=== PATIENT | male | born 1965 | race Two or more races ===

== ENCOUNTER 2024-09-30 17:08 | Inpatient (IN) | payer MEDICAID ==
[~2024-09-30] VITALS: Ht 177.8 cm; Wt 58.2 kg
[~2024-09-30 17:08] MED LIST: VANCOMYCIN 750 MG in IV D5W 250 ML IV SCH
[2024-09-30] MEDS ORDERED: ALBUTEROL FS 2.5 MG/3 ML VIAL.NEB ONE (17:21)
[2024-09-30] MEDS: IPRATROPIUM NEB FS 0.5 MG/2.5 ML AMPUL.NEB NEB ONE (17:21)
[2024-09-30] MEDS ORDERED: IPRATROPIUM NEB FS 0.5 MG/2.5 ML AMPUL.NEB ONE (17:21)
[2024-09-30] MEDS: ALBUTEROL FS 2.5 MG/3 ML VIAL.NEB CONTNEB ONE (17:21)
[2024-09-30 17:47] LABS: ABG BASE EXCESS 2.2 mmol/L (-2.0-3.0); ABG OXYGEN SATURATION 99.4 % (94.0-98.0); ABG PCO2 35.7 mmHg (35.0-48.0); ABG PH 7.474 (7.350-7.450); ABG PO2 258.8 mmHg (83.0-108.0); COHb 0.2 % (0.5-1.5); MetHb 0.3 % (0.0-1.5); O2Hb 98.9 % (94.0-97.0); PEEP,BG 5 cm H2O; SITE, ABG LEFT RADIAL; VT, ABG 500 mL
[2024-09-30] MEDS ORDERED: QUET25TA GT (18:28)
[2024-09-30] MEDS ORDERED: LORA10TA7 GT (18:28)
[2024-09-30] MEDS ORDERED: DILT30TA2 GT (18:28)
[2024-09-30] MEDS ORDERED: OXYCODONE HCL GT (18:28)
[2024-09-30] MEDS ORDERED: ZOLP5TAB8 GT (18:28)
[2024-09-30] MEDS ORDERED: HC A10FO RC (18:28)
[2024-09-30] MEDS ORDERED: SIME80TA15 GT (18:28)
[2024-09-30] MEDS ORDERED: POLY15DR17 EACHEYE (18:28)
[2024-09-30] MEDS ORDERED: IPRA3AMP23 IH (18:28)
[2024-09-30] MEDS ORDERED: HYDR-4075 GT (18:28)
[2024-09-30] MEDS ORDERED: DIAZ5TAB4 GT (18:28)
[2024-09-30 19:34] LABS: BASOPHILS # (AUTO) 0.1 K/uL (0.0-0.2); EOSINOPHILS # (AUTO) 0.2 K/uL (0.0-0.7); EOSINOPHILS % (AUTO) 1.5 % (0.0-6.0); HEMATOCRIT 36 % (39-51); HEMOGLOBIN 11.5 g/dL (13.5-17.5); LYMPHOCYTES # (AUTO) 0.9 K/uL (0.8-4.8); LYMPHOCYTES % (AUTO) 6.3 % (20.0-44.0); MEAN CORPUSCULAR HEMOGLOBIN 30 PG (26.0-33.0); MEAN CORPUSCULAR HGB CONC 32 g/dl (31.0-36.0); MEAN CORPUSCULAR VOLUME 94 fL (80-96); MONOCYTES # (AUTO) 0.5 K/uL (0.1-1.30); MONOCYTES % (AUTO) 3.4 % (2.0-12.0); NEUTROPHILS # (AUTO) 12.3 K/uL (1.8-8.9); NEUTROPHILS % (AUTO) 87.8 % (43.0-81.0); PLATELET COUNT (AUTO) 606 K/uL (150-450); RED BLOOD CELL COUNT(AUTO) 3.84 MIL/uL (4.5-6.0); RED CELL DISTRIBUTION WIDTH 14.9 % (11.5-15.0)
[2024-09-30 19:51] LABS: CREATININE 0.7 mg/dL (0.6-1.3)
[2024-09-30] MEDS ORDERED: ONDANSETRON HCL/PF 4 MG/2 ML VIAL IVP PRN (21:00)
[2024-09-30] MEDS ORDERED: IPRATROPIUM NEB FS 0.5 MG/2.5 ML AMPUL.NEB NEB PRN ×2 (21:00)
[2024-09-30] MEDS ORDERED: DIAZEPAM 5 MG TABLET GT PRN (21:30)
[2024-09-30] MEDS: IPRATROPIUM NEB FS 0.5 MG/2.5 ML AMPUL.NEB NEB SCH (21:30)
[2024-09-30] MEDS ORDERED: DILTIAZEM HCL 30 MG TABLET GT PRN (21:30)
[2024-09-30] MEDS ORDERED: SIMETHICONE 80 MG TAB.CHEW GT PRN (21:30)
[2024-09-30] MEDS ORDERED: hydrALAZINE HCL 10 MG TABLET GT PRN (21:30)
[2024-09-30] MEDS: IV NS 0.9% 1,000 ML IV SCH (22:56)
[2024-09-30] MEDS ORDERED: VANCOMYCIN 1 GM /D5W 250 ML PB IV ONE (23:06)
[2024-09-30] MEDS ORDERED: MEROPENEM 1 G VIAL IV ONE (23:07)
[2024-09-30] MEDS: MEROPENEM 1 G in IV NS 0.9% 100 ML IV SCH (23:41)
[2024-09-30] MEDS: VANCOMYCIN HCL 1.25 GM in IV D5W 250 ML IV ONE (23:42)
[2024-09-30] MEDS ORDERED: oxyCODONE HCL SOLN 5 MG/5 ML UDC GT PRN (23:45)
[2024-09-30] MEDS: QUETIAPINE FUMARATE 25 MG TABLET GT SCH (23:46)
[2024-09-30] MEDS: ENOXAPARIN SODIUM 40 MG/0.4 ML DISP.SYRIN SQ SCH (23:47)
[2024-09-30] MEDS: ALBUTEROL FS 2.5 MG/3 ML VIAL.NEB NEB SCH (23:52)
[2024-10-01] VITALS: BP 119/61; TEMP 99.5; O2SAT 95
[2024-10-01] MEDS: POLYVINYL ALCOHOL 15 ML BOTTLE EACHEYE SCH (01:00)
[2024-10-01] MEDS: ACETAMINOPHEN 650 MG/20.3 ML UDC GT ONE (01:18)
[2024-10-01] MEDS: KETOROLAC TROMETHAMINE INJ 30 MG/ML VIAL IM/IV ONE (01:19)
[2024-10-01 01:54] LABS: ALBUMIN 1.9 g/dL (3.4-5.0); BILIRUBIN,DIRECT 0.1 mg/dL (0.0-0.2); BILIRUBIN,TOTAL 0.7 mg/dL (0.2-1.0); TOTAL PROTEIN, SERUM 6.7 g/dL (6.4-8.2)
[2024-10-01 04:00] VITALS: BP 91/62; TEMP 99; O2SAT 100
[2024-10-01] MEDS ORDERED: MEROPENEM 1 G VIAL IV ONE (05:46)
[2024-10-01] MEDS ORDERED: VANCOMYCIN 1 GM /D5W 250 ML PB IV ONE (05:53)
[2024-10-01] MEDS: VANCOMYCIN 750 MG in IV D5W 250 ML IV SCH (06:15)
[2024-10-01 07:21] LABS: BASOPHILS % (AUTO) 0.4 % (0.0-2.0); EOSINOPHILS # (AUTO) 0.1 K/uL (0.0-0.7); EOSINOPHILS % (AUTO) 1.6 % (0.0-6.0); HEMATOCRIT 26 % (39-51); HEMOGLOBIN 8.5 g/dL (13.5-17.5); LYMPHOCYTES # (AUTO) 1.1 K/uL (0.8-4.8); MEAN CORPUSCULAR HEMOGLOBIN 31 PG (26.0-33.0); MEAN CORPUSCULAR HGB CONC 33 g/dl (31.0-36.0); MEAN CORPUSCULAR VOLUME 91 fL (80-96); MONOCYTES # (AUTO) 0.4 K/uL (0.1-1.30); MONOCYTES % (AUTO) 4.6 % (2.0-12.0); NEUTROPHILS # (AUTO) 7.6 K/uL (1.8-8.9); NEUTROPHILS % (AUTO) 81.4 % (43.0-81.0); PLATELET COUNT (AUTO) 592 K/uL (150-450); RED BLOOD CELL COUNT(AUTO) 2.79 MIL/uL (4.5-6.0); RED CELL DISTRIBUTION WIDTH 14.9 % (11.5-15.0); WHITE BLOOD COUNT (AUTO) 9.3 K/uL (4.3-11.0)
[2024-10-01] MEDS ORDERED: IV NS 0.9% 1,000 ML IV PRN (07:36)
[2024-10-01 08:00] VITALS: BP 108/69; TEMP 97.5; O2SAT 100
[2024-10-01 08:02] LABS: BILIRUBIN,TOTAL 0.5 mg/dL (0.2-1.0); CALCIUM, SERUM 9.6 mg/dL (8.5-10.1); CREATININE 0.7 mg/dL (0.6-1.3); MAGNESIUM 2.4 mg/dL (1.8-2.4); PHOSPHORUS 4.5 mg/dL (2.5-4.9); POTASSIUM 4.1 mmol/L (3.5-5.1)
[2024-10-01] MEDS: PANTOPRAZOLE 40 MG VIAL IV SCH (08:18)
[2024-10-01] MEDS: LORATADINE 10 MG TABLET GT SCH (08:18)
[2024-10-01] MEDS: ACETAMINOPHEN 325 MG TABLET MC PRN (08:19)
[2024-10-01] MEDS: THERAHONEY GEL 1.5 OZ TUBE TP SCH (11:16)
[2024-10-01 12:00] VITALS: BP 98/75; TEMP 97.3; O2SAT 100
[2024-10-01] MEDS: VITAL AF 1.2 1,000 ML BOTTLE GT PRN (12:52)
[2024-10-01] MEDS: PHENYLEPHRINE/SHK LV/MO/PET,WH 30 GM TUBE RC SCH (13:42)
[2024-10-01] MEDS: ACETYLCYSTEINE 10% SOLN 400 MG/4 ML VIAL NEB SCH (14:46)
[2024-10-01 16:00] VITALS: BP 110/87; TEMP 97.3; O2SAT 100
[2024-10-01] MEDS: ARGININE/GLUTAMINE/CALCIUM BMB 1 EACH POWD.PACK GT SCH (17:05)
[2024-10-01] MEDS: AMMONIUM LACTATE 227 GM BOTTLE TP SCH (17:05)
[2024-10-01 20:00] VITALS: BP 104/73; TEMP 97.5; O2SAT 100
[2024-10-01] MEDS: oxyCODONE IR immediate release 5 MG TABLET GT PRN (21:20)
[2024-10-02] VITALS: BP 96/64; TEMP 97.8; O2SAT 100
[2024-10-02 04:00] VITALS: BP 116/79; TEMP 97.6; O2SAT 100
[2024-10-02 08:00] VITALS: BP 128/78; TEMP 97.7; O2SAT 100
[2024-10-02] MEDS: Z GUARD REMEDY 4 OZ OINT TP PRN (08:34)
[2024-10-02 08:39] LABS: BASOPHILS % (AUTO) 0.5 % (0.0-2.0); EOSINOPHILS # (AUTO) 0.3 K/uL (0.0-0.7); EOSINOPHILS % (AUTO) 4.2 % (0.0-6.0); HEMATOCRIT 29 % (39-51); HEMOGLOBIN 9.4 g/dL (13.5-17.5); LYMPHOCYTES # (AUTO) 1.1 K/uL (0.8-4.8); LYMPHOCYTES % (AUTO) 14.4 % (20.0-44.0); MEAN CORPUSCULAR HEMOGLOBIN 30 PG (26.0-33.0); MEAN CORPUSCULAR HGB CONC 32 g/dl (31.0-36.0); MEAN CORPUSCULAR VOLUME 93 fL (80-96); MONOCYTES # (AUTO) 0.5 K/uL (0.1-1.30); NEUTROPHILS # (AUTO) 5.9 K/uL (1.8-8.9); NEUTROPHILS % (AUTO) 74.9 % (43.0-81.0); PLATELET COUNT (AUTO) 643 K/uL (150-450); RED BLOOD CELL COUNT(AUTO) 3.14 MIL/uL (4.5-6.0); RED CELL DISTRIBUTION WIDTH 14.9 % (11.5-15.0); WHITE BLOOD COUNT (AUTO) 7.9 K/uL (4.3-11.0)
[2024-10-02 09:37] LABS: CALCIUM, SERUM 9.9 mg/dL (8.5-10.1); CREATININE 0.7 mg/dL (0.6-1.3); MAGNESIUM 2.2 mg/dL (1.8-2.4); POTASSIUM 4.2 mmol/L (3.5-5.1)
[2024-10-02 12:00] VITALS: BP 122/70; TEMP 98.2; O2SAT 98
[2024-10-02 16:00] VITALS: BP 125/71; TEMP 97.5; O2SAT 100
[2024-10-02] MEDS ORDERED: VANCOMYCIN 750 MG in IV D5W 250 ML IV SCH (21:00)
[2024-10-03] MEDS ORDERED: PANTOPRAZOLE 40 MG/PACK PACK NG SCH (09:00)
== END 2024-10-02 22:03 | disposition short-term general hospital (02) | DRG 133 ==
LOC: ER 17:16 → TELE-TD 20:08 → TELE1 10-01 09:43
PROVIDERS: ATTEND Nurse Practitioner Family
PROC: 5A1945Z Respiratory Ventilation, 24-96 Consecutive Hours (ICD-10-PCS; principal; 2024-09-30)
DX: J96.21 Acute and chronic respiratory failure with hypoxia (principal); L89.314 Pressure ulcer of right buttock, stage 4; L89.154 Pressure ulcer of sacral region, stage 4; L89.324 Pressure ulcer of left buttock, stage 4; J15.212 Pneumonia due to Methicillin resistant Staphylococcus aureus; L89.616 Pressure-induced deep tissue damage of right heel; T17.890A Other foreign object in other parts of respiratory tract causing asphyxiation, initial encounter; D68.59 Other primary thrombophilia; Z93.0 Tracheostomy status; Z99.11 Dependence on respirator [ventilator] status; G82.20 Paraplegia, unspecified; L89.90 Pressure ulcer of unspecified site, unspecified stage; R13.10 Dysphagia, unspecified; D64.9 Anemia, unspecified; D75.839 Thrombocytosis, unspecified; J98.11 Atelectasis; Z74.01 Bed confinement status; Z87.01 Personal history of pneumonia (recurrent); Z87.891 Personal history of nicotine dependence; Z93.3 Colostomy status; Z93.1 Gastrostomy status; W44.F9XA Other object of natural or organic material, entering into or through a natural orifice, initial encounter; Y93.9 Activity, unspecified; D72.829 Elevated white blood cell count, unspecified; W19.XXXS Unspecified fall, sequela; S14.159S Other incomplete lesion at unspecified level of cervical spinal cord, sequela; L89.516 Pressure-induced deep tissue damage of right ankle
CPT/HCPCS: 31720; 36415; 71045-TC; 80048-TC; 80053-TC; 80076-TC; 80202-TC; 82803-TC; 83605-TC; 83735-TC; 84100-TC; 85025-TC; 87040-TC; 87070-TC; 87081-TC; 87205-TC; 94003-TC; 94760-TC; 94762-TC; 94799-TC; 99082-TC; A4223; A4623; A6213; A6403; G0378; J1650; J1885; J2185; J2470; J3370; J3371; J7030; J7040; J7060